=== PATIENT | female | born 1970 | race Two or more races ===

== ENCOUNTER 2020-01-20 21:54 | Emergency (ER) | payer OTHER ==
[~2020-01-20] VITALS: Ht 165.1 cm; Wt 69.4 kg
--- NOTE | 2020-01-21 | NUR ---
PT BIBRA FROM STREETS FOR ETOH. PT ALERT AND AWAKE, RESPIRATIONS EVEN AND UNLABORED ON RA W/ NAD NOTED. PT CONNECTED TO THE [employer] CLERK AND POX. WILL CONTINUE TO MONITOR PT. SITTER AT BEDSIDE
--- NOTE | 2020-01-21 04:48 | NUR ---
called pt family [phone], unable to leave , mailbox full.
--- NOTE | 2020-01-21 05:12 | NUR ---
Patient is resting comfortably in bed with eyes closed. Easily aroused. VSS
--- NOTE | 2020-01-21 05:51 | NUR ---
Pt unable to ambulate on her own. Will try to help patient ambulate soon.
[2020-01-21 06:23] VITALS: BP 138/73
--- NOTE | 2020-01-21 06:23 | NUR ---
PT AMBULATED TO THE NURSING STATION, ASKED TO BE DISCHARGED. PT WAS DISCHARGED, VSS. AMBULATED WITH STEADY GAIT.
== END 2020-01-21 06:24 | disposition home or self-care (01) ==
LOC: EDBD 21:57 → ER 21:57
DX: F10.129 Alcohol abuse with intoxication, unspecified (principal); R51.9 Headache, unspecified; Y90.9 Presence of alcohol in blood, level not specified
CPT/HCPCS: 70450-TC